=== PATIENT | male | born 1995 | race Caucasian/White ===

== ENCOUNTER 2019-10-23 10:33 | Emergency (ER) | payer OTHER ==
[2019-10-23] MEDS ORDERED: KETOROLAC 30 MG/ML VIAL IM ONE (11:05)
[2019-10-23 11:17] LABS: ABSOLUTE NEUTROPHIL COUNT 6.23; BASO % 0.1 % (0-6); EOS % 1.7 % (0-6); GRAN % 79.2 % (47-80); HEMATOCRIT 46.8 % (42.0-52.0); HEMOGLOBIN 15.6 gm/dl (14.0-18.0); LYMPH % 10.1 % (16-45); MEAN CELL VOLUME 90.7 fl (81-97); MEAN CORPUSCULAR HEMOGLOBIN 30.2 pg (27-33); MEAN CORPUSCULAR HGB CONC 33.3 g/dl (32-36); MEAN PLATELET VOLUME 11.9 fl (7.4-10.4); MONO % 8.9 % (0-9); PLATELET COUNT 221 K/uL (130-400); RED BLOOD COUNT 5.16 M/uL (4.40-5.70); RED CELL DISTRIBUTION WIDTH 13.6 % (11.5-14.5); WHITE BLOOD COUNT W/O DIFF 7.9 K/uL (4.2-12.2)
--- NOTE | 2019-10-23 11:46 | RADIOLOGY REPORT ---
EXAMINATION: Two View Chest Radiographs EXAM DATE: 10/23/2019 11:26 AM TECHNIQUE: Frontal and lateral views of the chest obtained. INDICATION: cp COMPARISON: 02/02/2014. FINDINGS: The heart and pulmonary vasculature are normal in size and there are no acute pulmonary infiltrates, pleural effusions or pneumothorax. There is some prominence of the central bronchovascular markings w ith peribronchial cuffing which is nonspecific however can be seen with reactive airway disease or po tential viral inflammatory change. No acute bony abnormality is seen. IMPRESSION: No acute pulmonary infiltrates or pleural effusions with additional comments as above. Dictated by: Brad Arndt MD on 10/23/2019 11:43 AM. .
--- NOTE | 2019-10-23 12:45 | Emergency Department Record ---
History of Present Illness - General Chief complaint: Pain Stated complaint: CHEST PAIN, LIGHT HEADED Time Seen by Provider: 10/23/19 10:55 Source: Patient Mode of Arrival: Ambulatory Limitations: No limitations - History of Present Illness Initial comments: pt has had a cough and cp that gets worse with inspiration for 5 days. pt smokes. pt denies leg pain or trips. MD Complaint: Other Onset/Timin -: Week(s) Location: Other History of Same: No Severity scale (1-10): 7 Quality: Sharp, Stabbing Improves with: Nothing Worsens with: Other (inspiration) Associated Symptoms: Other - Related Data Home Medications Medication Instructions Recorded Confirmed Last Taken No Home Med [NO HOME MEDS] 10/23/19 10/23/19 Unknown Allergies Allergy/AdvReac Type Severity Reaction Status Date / Time No Known Drug Allergies Allergy Verified 10/23/19 10:40 Travel Screening - Travel/Exposure Within Last 30 Days Have you traveled within the last 30 days?: No - Travel/Exposure Within Last Year Have you traveled outside the [place] in the last year?: No - Additonal Travel Details Have you been exposed to anyone with a communicable illness?: No - Travel Symptoms Symptom Screening: None Review of Systems Reviewed: No additional complaints except as noted below Constitutional: Reports: As per HPI. Denies: Chills, Fever, Malaise, Night sweats, Weakness, Weight change Eyes: Reports: As per HPI. Denies: Eye discharge, Eye pain, Photophobia, Vision change ENT: Reports: As per HPI. Denies: Congestion, Dental pain, Ear pain, Epistaxis, Hearing loss, Throat pain Respiratory: Reports: As per HPI, Cough. Denies: Dyspnea, Hemoptysis, Stridor, Wheezes Cardiovascular: Reports: As per HPI, Chest pain. Denies: Arrhythmia, Dyspnea on exertion, Edema, Murmurs, Orthopnea, Palpitations, Paroxysmal nocturnal dyspnea, Rheumatic Fever, Syncope Endocrine: Reports: As per HPI. Denies: Fatigue, Heat or cold intolerance, Polydipsia, Polyuria Gastrointestinal: Reports: As per HPI. Denies: Abdominal pain, Constipation, Diarrhea, Hematemesis, Hematochezia, Melena, Nausea, Vomiting Genitourinary: Reports: As per HPI. Denies: Dysuria, Frequency, Hematuria, Incontinence, Retention, Testicular pain, Testicular mass, Urgency Musculoskeletal: Reports: As per HPI. Denies: Arthralgia, Back pain, Gout, Joint swelling, Myalgia, Neck pain Skin: Reports: As per HPI. Denies: Bruising, Change in color, Change in hair/nails, Lesions, Pruritus, Rash Neurological: Reports: As per HPI. Denies: Abnormal gait, Confusion, Headache, Numbness, Paresthesias, Seizure, Tingling, Tremors, Vertigo, Weakness Psychiatric: Reports: As per HPI. Denies: Anxiety, Auditory hallucinations, Depression, Homicidal thoughts, Suicidal thoughts, Visual hallucinations Hematological/Lymphatic: Reports: As per HPI. Denies: Anemia, Blood Clots, Easy bleeding, Easy bruising, Swollen glands Past Medical History - SOCIAL HISTORY Smoking Status: Current every day smoker Alcohol Use: Rare Drug Use: Occasional Drug Use Detail:: Marijuana - RESPIRATORY Hx Respiratory Disorders: No - CARDIOVASCULAR Hx Cardio Disorders: No - NEURO Hx Neuro Disorders: Yes Hx Headaches: Yes (chronic) - GI Hx GI Disorders: No - Hx Genitourinary Disorders: No - ENDOCRINE Hx Endocrine Disorders: No - MUSCULOSKELETAL Hx Musculoskeletal Disorders: Yes - PSYCH Hx Psych Problems: No - HEMATOLOGY/ONCOLOGY Hx Hematology/Oncology Disorders: No Family Medical History Any Significant Family History?: Yes Hx Cancer: Grandparents Hx Heart Disease: Grandparents Physical Exam - General General Appearance: Alert, Oriented x3, Cooperative, Mild distress - Head Head exam: Normal inspection - Eye Eye exam: Normal appearance, PERRL, EOMI Pupils: Normal accommodation - ENT ENT exam: Normal exam, Mucous membranes moist, Normal external ear exam, Normal orophraynx Ear exam: Normal external inspection. negative: External canal tenderness Nasal Exam: Normal inspection. negative: Discharge, Sinus tenderness Mouth exam: Normal external inspection, Tongue normal Teeth exam: Normal inspection. negative: Dental caries Throat exam: Normal inspection. negative: Tonsillar erythema, Tonsillar exudate - Neck Neck exam: Normal inspection, Full ROM. negative: Tenderness - Respiratory Respiratory exam: Normal lung sounds bilaterally. negative: Respiratory distress - Cardiovascular Cardiovascular Exam: Regular rate, Normal rhythm, Normal heart sounds - GI/Abdominal GI/Abdominal exam: Soft, Normal bowel sounds. negative: Tenderness - Rectal Rectal exam: Deferred - exam: Deferred - Extremities Extremities exam: Normal inspection, Full ROM, Normal capillary refill. negative: Tenderness - Back Back exam: Reports: Normal inspection, Full ROM. Denies: Muscle spasm, Rash noted, Tenderness - Neurological Neurological exam: Alert, CN II-XII intact, Normal gait, Oriented X3 - Psychiatric Psychiatric exam: Normal affect, Normal mood - Skin Skin exam: Dry, Intact, Normal color, Warm Course Vital Signs 10/23/19 10:40 Temperature 98 F Pulse Rate 70 Respiratory 20 Rate Blood Pressure 134/91 Pulse Ox 100 Medical Decision Making - Lab Data Result diagrams: 10/23/19 11:10 Lab Results 10/23/19 10/23/19 10/23/19 Range/Units 11:10 11:10 11:10 WBC 7.9 (4.2-12.2) K/uL RBC 5.16 (4.40-5.70) M/uL Hgb 15.6 (14.0-18.0) gm/dl Hct 46.8 (42.0-52.0) % MCV 90.7 (81-97) fl MCH 30.2 (27-33) pg MCHC 33.3 (32-36) g/dl RDW 13.6 (11.5-14.5) % Plt Count 221 (130-400) K/uL MPV 11.9 H (7.4-10.4) fl Gran % 79.2 (47-80) % Lymphocytes % 10.1 L (16-45) % Monocytes % 8.9 (0-9) % Eosinophils % 1.7 (0-6) % Basophils % 0.1 (0-6) % Absolute Neutrophils 6.23 D-Dimer 0.24 (0-0.59) mg/L FEU Troponin T < 0.010 (0-0.010) ng/mL Disposition Disposition: Discharge Clinical Impression: Pleurisy, Viral syndrome Disposition: Home, Self-Care Condition: (1) Good Instructions: Pleurisy (ED), Viral Syndrome (ED) Additional Instructions: follow up with family doctor. return sooner if worse. motrin for pain Quality - Quality Measures Quality Measures: N/A - Blood Pressure Screening Does Patient Have Any of the Following: No Blood Pressure Classification: Hypertensive Reading Systolic Measurement: 134 Diastolic Measurement: 91 Screening for High Blood Pressure: < First Hypertensive BP, F/U Documented > [G8950] First Hypertensive Follow-up Interventions: Follow-up with rescreen GT 1 day and LT 4 weeks.
== END 2019-10-23 12:54 | disposition home or self-care (01) ==
LOC: ER 10:33
DX: R09.1 Pleurisy (principal); B34.9 Viral infection, unspecified; F17.210 Nicotine dependence, cigarettes, uncomplicated; R42 Dizziness and giddiness
CPT/HCPCS: 99284 ×2; 96372; 85025; 84484; 85379; 71046; 93005; 93010; J1885